=== PATIENT | male | born 1980 | race Caucasian/White ===

== ENCOUNTER 2016-12-25 17:40 | Emergency (ER) | payer OTHER ==
[~2016-12-25] VITALS: Wt 105.0 kg
[~2016-12-25 17:40] MED LIST: CLIN-73 PO; HYDR-906 PO
[2016-12-25] MEDS ORDERED: LIDOCAINE 1% (MDV) 20 ML INJ SC ONE (18:30)
[2016-12-25] MEDS ORDERED: IBUPROFEN 600 MG TAB PO ONE (18:30)
[2016-12-25] MEDS ORDERED: CEFTRIAXONE 1 GM INJ IM ONE (18:30)
[2016-12-25] MEDS ORDERED: LIDO20SO19 MM (18:37)
[2016-12-25] MEDS ORDERED: CEPH-443 PO (18:37)
[2016-12-25] MEDS ORDERED: IBUP800T25 PO (18:37)
[2016-12-25] MEDS ORDERED: TRAM50TA2 PO (18:38)
[2016-12-25 18:56] VITALS: BP 141/94; PULSE 95; RESP 16
--- NOTE | 2016-12-25 19:03 | ERD ---
ER Documentation Chief Complaint Date/Time DATE: 12/25/16 TIME: 19:01 Chief Complaint lower and upper dental pain for the past few months.mild face swelling HPI This 36-year-old male complains of right upper dental pain intermittent for the last few months but worsened over the last week. He completed a course of antibiotics last week. Is in the process trying to see a dentist. Denies fevers, difficulty swallowing or difficulty breathing. ROS All systems reviewed and are negative except as per history of present illness. Medications Home Meds Active Scripts Tramadol HCl (Tramadol HCl) 50 Mg Tablet, 50 MG PO Q4 Y for PAIN, #15 TAB Prov:ISRAEL MORENO MD 12/25/16 Lidocaine (Lidocaine Viscous) 100 Ml Soln, 100 ML MM QID for 7 Days Prov:ISRAEL MORENO MD 12/25/16 Ibuprofen* (Motrin*) 800 Mg Tab, 800 MG PO Q6, #30 TAB Prov:ISRAEL MORENO MD 12/25/16 Cephalexin* (Keflex*) 500 Mg Capsule, 500 MG PO QID for 10 Days, CAP Prov:ISRAEL MORENO MD 12/25/16 Clindamycin Hcl* (Clindamycin Hcl*) 300 Mg Capsule, 300 MG PO TID for 7 Days, CAP Prov:MABLE VALDES 08/21/16 Hydrocodone/Acetaminophen ([place] 5-325 Tablet) 1 Each Tablet, 1 TAB PO Q6H Y for PAIN, #10 TAB Prov:MABLE VALDES 08/21/16 PMhx/Soc Hx Miscellaneous Medical Probl: Yes (carpal tunnel, back pain) Hx Alcohol Use: No Hx Substance Use: No Hx Tobacco Use: No Smoking Status: Former smoker Physical Exam Vitals Vital Signs Date Time Temp Pulse Resp B/P Pulse Ox O2 Delivery O2 Flow Rate FiO2 12/25/16 18:56 95 16 141/94 95 Room Air 12/25/16 17:43 98.8 98 20 140/95 98 Physical Exam Const: [] Alert, [id number] Head: Atraumatic Eyes: Normal Conjunctiva ENT: Normal External Ears, Nose and Mouth. Poor dentition in the right upper molars. There is some tenderness in the right maxillary sinus area with some very slight induration Neck: Full range of motion..~ No meningismus. Resp: Clear to auscultation bilaterally Cardio: Regular rate and rhythm, no murmurs Abd: Soft, non tender, non distended. Normal bowel sounds Skin: No petechiae or rashes Back: No midline or flank tenderness Ext: No cyanosis, or edema Neur: Awake and alert Psych: Normal Mood and Affect Results 24 hrs Current Medications Medications (Trade) Dose Ordered Sig/Bushra Route PRN Reason Start Time Stop Time Status Last Admin Dose Admin Ibuprofen (Motrin) 600 mg ONCE ONCE PO 12/25/16 18:30 12/25/16 18:31 DC 12/25/16 18:26 Ceftriaxone Sodium (Rocephin) 1 gm ONCE ONCE IM 12/25/16 18:30 12/25/16 18:31 DC 12/25/16 18:26 Lidocaine (Xylocaine 1% (Mdv) 20 ml) 20 ml ONCE ONCE SC 12/25/16 18:30 12/25/16 18:31 DC 12/25/16 18:26 Procedures/MDM Patient presents with signs and symptoms of molar dental infection with stenting of the right maxillary sinus area. There is no evidence of significant facial cellulitis, airway obstruction, sepsis. Patient was given Rocephin 1 g IM, and ibuprofen 600 mg by mouth. Patient will referred to local dentist given a prescription for Keflex, tramadol and ibuprofen and Viscous Lidocaine by request. Patient is advised to return for difficulty swallowing, difficulty breathing, new worsening symptoms or primary care doctor. Departure Diagnosis: Primary Impression: Pain, dental Condition: Stable Patient Instructions: Dental Pain Referrals: [facility] DENT[facility] ([facility] walk in clinic) Additional Instructions: See dentist for further evaluation . Recheck sooner for difficulty swallowing, difficulty breathing, new or worsening symptoms or ISRAEL MORENO MD Dec 25, 2016 19:03
== END 2016-12-25 18:57 | disposition home or self-care (01) ==
LOC: FTE 17:40
DX: K08.89 Other specified disorders of teeth and supporting structures (principal); Z87.891 Personal history of nicotine dependence
CPT/HCPCS: 96372; J0696; Z7502; Z7610

== ENCOUNTER 2018-08-26 11:26 | Emergency (ER) | END 2018-08-26 12:11 | disposition home or self-care (01) ==

== ENCOUNTER 2018-09-13 13:25 | Emergency (ER) | END 2018-09-13 14:15 | disposition home or self-care (01) ==

== ENCOUNTER 2019-01-04 21:37 | Emergency (ER) | payer SELFPAY ==
[~2019-01-04] VITALS: Ht 182.9 cm; Wt 103.9 kg
[~2019-01-04 21:37] MED LIST changes: +AMOX500C2 PO; +BENZ1LOZ52 MM; +CEPH-443 PO; -CLIN-73 PO; +CLIN300C10 PO; +HYDR-4011 PO; -HYDR-906 PO; +IBUP-1542 PO; +IBUP800T48 PO; +LIDO20SO19 MM; +PENI500T PO; +TRAM50TA2 PO
[2019-01-04 21:45] VITALS: Ht 182.9 cm; Wt 103.9 kg
== END 2019-01-05 01:09 | disposition left against medical advice (07) ==
LOC: FTE 21:37
DX: Z53.21 Procedure and treatment not carried out due to patient leaving prior to being seen by health care provider (principal)

== ENCOUNTER 2019-01-06 00:27 | Emergency (ER) | payer SELFPAY ==
[~2019-01-06] VITALS: Ht 182.9 cm; Wt 103.6 kg
[2019-01-06 00:34] VITALS: BP 138/75; PULSE 99; RESP 18; Ht 182.9 cm; Wt 103.6 kg
== END 2019-01-06 04:32 | disposition left against medical advice (07) ==
LOC: FTE 00:27
DX: Z53.21 Procedure and treatment not carried out due to patient leaving prior to being seen by health care provider (principal)

== ENCOUNTER 2019-01-08 09:00 | Emergency (ER) | payer OTHER ==
[~2019-01-08] VITALS: Ht 182.9 cm; Wt 106.6 kg
[2019-01-08 09:34] VITALS: BP 127/96; PULSE 80; RESP 18; Ht 182.9 cm; Wt 106.6 kg
[2019-01-08] MEDS ORDERED: ELIM TOP (11:10)
[2019-01-08] MEDS ORDERED: HDRP454O TOP (11:10)
[2019-01-08] MEDS ORDERED: PENI500T PO (11:11)
--- NOTE | 2019-01-08 11:16 | ERD ---
ER Documentation Chief Complaint Chief Complaint C/O TOOTHACE, WANTS PAIN MED AND ANTIBIOTICS HPI Patient is a 38-year-old male presents the ER for concerns of multiple complaints. Patient reports right lower dental pain. Patient states he had this pain intermittently for a few months. Patient states he is under the care of a dentist and he sees Dr. Hunter, however he did miss his last appointment. Patient states that he is having all his teeth removed and dentures made due to his numerous dental caries. Patient denies any fevers or chills. Patient denies any nausea or vomiting. Patient also reports a rash on his inner legs and on his hands. Patient states he has a history of scabies however he does not feel that symptoms are consistent. Patient states he occasionally itches the lesions. Patient denies any new creams, lotions, medications or foods. Patient denies any abdominal changes. Patient denies any chest pain or shortness of breath. ROS All systems reviewed and are negative except as per history of present illness. Medications Home Meds Active Scripts Penicillin V Potassium* (Penicillin V K*) 500 Mg Tab, 500 MG PO Q6, #28 TAB Prov:PEDRO LANGFORD PA-C 01/08/19 Hydrophilic Base* (Aquaphor*) 454 Gm-Topical Oint, 1 APPLIC TOP BID, #1 JAR Prov:PEDRO LANGFORD PA-C 01/08/19 Permethrin* (Elimite*) 5% Cr, 1 APPLIC TOP ONCE for use as directed, #1 TUB Prov:PEDRO LANGFORDC 01/08/19 Ibuprofen* (Motrin*) 600 Mg Tab, 600 MG PO Q6, #30 TAB Prov:PEDRO LANGFORDC 09/13/18 Benzocaine/Menthol* (Cepacol* Sore Throat Lozenges) 1 Each Lozenge, 1 EACH MM q2h PRN for SORE THROAT, #20 LOZENGE Prov:PEDRO LANGFORDC 09/13/18 Penicillin V Potassium* (Penicillin V K*) 500 Mg Tab, 500 MG PO Q6, #28 TAB Prov:PEDRO LANGFORD-C 09/13/18 Ibuprofen* (Motrin*) 600 Mg Tab, 600 MG PO Q6H PRN for PAIN AND OR ELEVATED TEMP, #30 TAB Prov:MICHAEL,FRANNY 08/26/18 Amoxicillin* (Amoxicillin*) 500 Mg Cap, 500 MG PO TID for 7 Days, CAP Prov:TASNEEM RODRIGUEZSON 08/26/18 Tramadol HCl (Tramadol HCl) 50 Mg Tablet, 50 MG PO Q4 PRN for PAIN, #15 TAB Prov:ISRAEL MOREON MD 12/25/16 Lidocaine (Lidocaine Viscous) 100 Ml Soln, 100 ML MM QID for 7 Days Prov:ISRAEL MORENO MD 12/25/16 Ibuprofen* (Motrin*) 800 Mg Tab, 800 MG PO Q6, #30 TAB Prov:ISRAEL MORENO MD 12/25/16 Cephalexin* (Keflex*) 500 Mg Capsule, 500 MG PO QID for 10 Days, CAP Prov:ISRAEL MORENO MD 12/25/16 Clindamycin Hcl* (Clindamycin Hcl*) 300 Mg Capsule, 300 MG PO TID for 7 Days, CAP Prov:LUCIO,MABLE C 08/21/16 Hydrocodone/Acetaminophen ([place] 5-325 Tablet) 1 Each Tablet, 1 TAB PO Q6H PRN for PAIN, #10 TAB Prov:LUCIOMABLE C 08/21/16 Allergies Allergies: Coded Allergies: No Known Drug Allergies (Verified Allergy, Unknown, 01/06/19) PMhx/Soc Hx Miscellaneous Medical Probl: Yes (carpal tunnel, back pain) Hx Alcohol Use: Yes Hx Substance Use: Yes Hx Tobacco Use: Yes FmHx Family History: No diabetes Physical Exam Vitals Vital Signs Date Temp Pulse Resp B/P (MAP) Pulse Ox O2 O2 Flow FiO2 Time Delivery Rate 01/08/19 97.8 80 18 127/96 97 09:34 (106) Physical Exam GENERAL: Well-developed, well-nourished male. Appears in no acute distress. HEAD: Normocephalic, atraumatic. EYES: Pupils are equally reactive bilaterally. EOMs grossly intact. No conjunctival erythema. Poor dentition noted. Numerous dental caries noted bilaterally. No pockets of fluctuance noted. ENT: Moist mucous membranes. No uvula deviation. No kissing tonsils. NECK: Supple. No meningismus. Normal range of motion of the neck. LUNG: Clear to auscultation bilaterally. No rhonchi, wheezing, rales or coarse breath sounds. HEART: Regular rate and rhythm. No murmurs, rubs or gallops. EXTREMITIES: Equal pulses bilaterally. No peripheral clubbing, cyanosis or edema. No unilateral leg swelling. NEUROLOGIC: Alert and oriented. Moving all four extremities without any difficulty. Normal speech. Steady gait. SKIN: Dry erythematous, excoriated skin noted in bilateral inner thighs as well as on patient's dorsal hands. Negative Nikolsky sign. No streaking. No warmth. No fluctuance or induration. Procedures/MDM MEDICAL DECISION MAKING: This is a 38-year-old male presents ER for concerns of multiple complaints. Patient reports having right sided dental pain as well as a rash. Vital signs were reviewed. Patient was afebrile. Patient was not hypoxic. The patient did not have trismus, muffled voice, uvula deviation, unilateral tonsillar swelling, or drooling. No signs of neck swelling or hyperextension of the neck noted. On exam, patient was noted to have dental caries. No evidence of fluctuance or induration noted on exam. Patient will be treated with antibiotics and advised to follow-up with his dentist for further management of his symptoms. Low suspicion for epiglottitis, strep pharyngitis, peritonsillar abscess, retropharyngeal abscess, Ludwigs angina, tooth fracture, bleeding dental socket, dry excoriated skin on his bilateral hands and inner thighs. Patient al so presents with dry, excoriated skin in his bilateral inner thighs and hands. Patient has a history of scabies. We will empirically treat patient with course of permethrin. Patient also given prescription for Aquaphor. Low suspicion for any bacterial infections. Low suspicion for fungal infection. Patient was advised to follow-up with a monument setter on outpatient basis. Referral information provided. PRESCRIPTIONS: Ibuprofen, permethrin ointment, penicillin DISCHARGE: At this time, patient is stable for discharge and outpatient management. I have instructed the patient to see a dentist and monument setter today or tomorrow. I have instructed the patient to promptly return to the ER at any time for any new or worsening symptoms including increased pain, fever, swelling, neck swelling, neck stiffness, drooling or difficulty breathing. The patient and/or family expressed understanding of and agreement with this plan. All questions were answered. Home care instructions were provided. Disclaimer: Inadvertent spelling and grammatical errors are likely due to EHR/dictation software use and do not reflect on the overall quality of patient care. Also, please note that the electronic time recorded on this note does not necessarily reflect the actual time of the patient encounter. Departure Diagnosis: Primary Impression: Pain, dental Additional Impression: Dermatitis Condition: Fair Patient Instructions: Dental Pain Referrals: ALEXANDRA HULL MD,TSERING BAEZA,JERI LEAL,NICK VILLEGAS,INÉS RAMOS,EVERARDO DAVIS,EVERARDO Limon COUNT INCLUDES THE [facility] YOU HAVE RECEIVED A MEDICAL SCREENING EXAM AND THE RESULTS INDICATE THAT YOU DO NOT HAVE A CONDITION THAT REQUIRES URGENT TREATMENT IN THE EMERGENCY DEPARTMENT. FURTHER EVALUATION AND TREATMENT OF YOUR CONDITION CAN WAIT UNTIL YOU ARE SEEN IN YOUR DOCTORS OFFICE WITHIN THE NEXT 1-2 DAYS. IT IS YOUR RESPONSIBILITY TO MAKE AN APPOINTMENT FOR FOLOW-UP CARE. IF YOU HAVE A PRIMARY DOCTOR --you should call your primary doctor and schedule an appointment IF YOU DO NOT HAVE A PRIMARY DOCTOR YOU CAN CALL OUR PHYSICIAN REFERRAL HOTLINE AT IF YOU CAN NOT AFFORD TO SEE A PHYSICIAN YOU CAN CHOSE FROM THE FOLLOWING [facility] [address] [facility]. [facility] [address] [facility]. [facility] [address] [facility] [facility] [address] [facility] [facility] [address] [facility]. [facility]. [address] [facility]. [facility] YOU HAVE RECEIVED A MEDICAL SCREENING EXAM AND THE RESULTS INDICATE THAT YOU DO NOT HAVE A CONDITION THAT REQUIRES URGENT TREATMENT IN THE EMERGENCY DEPARTMENT. FURTHER EVALUATION AND TREATMENT OF YOUR CONDITION CAN WAIT UNTIL YOU ARE SEEN IN YOUR DOCTORS OFFICE WITHIN THE NEXT 1-2 DAYS. IT IS YOUR RESPONSIBILITY TO MAKE AN APPOINTMENT FOR FOLOW-UP CARE. IF YOU HAVE A PRIMARY DOCTOR --you should call your primary doctor and schedule and appointment IF YOU DO NOT HAVE A PRIMARY DOCTOR YOU CAN CALL OUR PHYSICIAN REFERRAL HOTLINE AT . IF YOU CAN NOT AFFORD TO SEE A PHYSICIAN YOU CAN CHOSE FROM THE FOLLOWING [facility] INSTITUTIONS: [facility] [address] [place] [address] [facility] [address] [place] [address] [facility] [address] [place] [address] [facility] DENTIST ([facility] walk in clinic) Additional Instructions: Call your primary care doctor/ DENTIST TOMORROW for an appointment during the next 1-2 days.See the doctor sooner or return here if your condition worsens before your appointment time. PEDRO LANGFORD PA-C Jan 08, 2019 11:16
[2019-01-08] MEDS ORDERED: IBUP-1542 PO (11:29)
[2019-01-08] MEDS ORDERED: IBUPROFEN 600 MG TAB PO ONE (11:30)
== END 2019-01-08 11:45 | disposition home or self-care (01) ==
LOC: FTE 09:00
DX: K08.89 Other specified disorders of teeth and supporting structures (principal); L30.9 Dermatitis, unspecified; Z87.891 Personal history of nicotine dependence
CPT/HCPCS: 99283